=== PATIENT | male | born 1965 | race Caucasian/White ===

== ENCOUNTER → 2019-04-23 | Outpatient (CLI) | payer BC, OTHER ==
[~2019-04-23] VITALS: Ht 170.2 cm; Wt 137.9 kg
[~2019-04-23] MED LIST: ASPIR 8181 MG PO; CIPROFLOXACIN500 M3 PO; FLAGYL500 MG PO; GLUCOPHAGE XR500 MG PO; GLUCOTROL10 MG PO; JARDIANCE10 MG PO; LIPITOR10 MG PO; LISINOPRIL20 MG PO; RELAFEN750 MG; VICTOZA0.6 MG/0.1 SUBQ; ZANAFLEX2 M1; ZOCOR 20 MG TAB20 M1
[2019-04-23 09:26] VITALS: BP 118/70
[2019-04-23 09:56] LABS: HEMOGLOBIN 13.5 gm/dL (14.0-18.0); MCH 30.5 pg (26.0-34.0); MCHC 33.8 g/dL (28.0-37.0); MCV 90.2 fL (80.0-100.0); RBC 4.44 mil/uL (4.50-6.00); RDW 13.7 % (10.5-14.5); WBC 8.7 thou/uL (4.0-11.0)
[2019-04-23 10:05] LABS: CALCIUM 10.9 mg/dL (8.5-10.1); CREATININE 1.7 mg/dL (0.7-1.3); POTASSIUM 4.8 mmol/L (3.5-5.1)
--- NOTE | 2019-04-23 13:45 | EKG ---
[address] [employer] [place] [address] ELECTROCARDIOGRAM REPORT Name: AMY SUTHERLAND Room #: REG CLI Diane#: [id number] Admission: 04/23/19 Attend Phys: Eriberto Daniel Discharge: Date of : 69 Report #: [id number] THIS REPORT FOR: //name// [facility] Test Date: 2019-04-23 Test Time: 09:35:09 Pat Name: AMY SUTHERLAND Department: Room: Gender: Client Service Coordinator: jlambertz : 1965 Requested By: Eriberto Daniel Order Number: [id number] MD: Rusty Christianson Measurements Intervals [place] Rate: 86 P: 29 NH: 200 QRS: 26 QRSD: 96 T: 18 QT: 354 QTc: 424 Interpretive Statements Sinus rhythm Compared to ECG 12/23/2006 12:05:12 No significant changes Electronically Signed On 04-23-2019 13:44:57 CDT by Rusty Christianson [email or web address] <ELECTRONICALLY SIGNED> By: Rusty Christianson MD 04/23/19 1344 0935 0935 Rusty Christianson MD /EPI
--- NOTE | 2019-04-28 16:17 | CATHLAB ---
[facility] [address] [place] [address] INVASIVE PROCEDURE REPORT Name: AMY SUTHERLAND Room #: REG [facility] [id number] Admission: 04/23/19 Attend Phys: Eriberto Sorensen Discharge: Date of : 69 Date of Service: 04/28/19 1617 Report #: [id number] THIS REPORT FOR: //name// APPROVED REPORT Study performed: 04/23/2019 11:18:32 Patient Details The patient is a 53 year-old male Event Personnel Eriberto Daniel Assisted Living Coordinator, Giselle Pkie RN , James Smith RTR ScrubRamirez Sherra RTR Monitor Procedures Performed Left Heart Cath w/or w/o Coronaries [id number] [facility], supervision of conscious sedation Indication Positive stress test, Chest pain Procedure Narrative The Right Groin^ was infiltrated with subcutaneous anesthesia. A PINNACLE 4FR Sheath #[id number] sheath was inserted into the RFA^. Coronary angiography was performed using coronary diagnostic catheters. The right coronary system was accessed and visualized with a JR4 catheter. The left coronary system was accessed and visualized with a JL4 catheter. The left ventricle was accessed and visualized with a JR4 catheter. Hemostasis was obtained with manual pressure following sheath removal without any complications. The patient tolerated the procedure well and there were no complications associated with the procedure. There was no hematoma. Intraoperative Conscious Sedation Sedation start time: 1120 Case end Time: 1137 Versed 2 mg Fluoro Time: 2.30 minutes Dose: DAP 6716.00 cGycm2 1161 mGy Contrast Type and Amount: Visipaque 30 ml Diagnostic Cath Left Main Left main is of normal origin and caliber bifurcates that into descending left circumflex. It is free of significant [facility] [address] [place] [address] INVASIVE PROCEDURE REPORT Name: KOKOAMY RICK Room #: REG [facility]#: [id number] Admission: 04/23/19 Attend Phys: Eriberto Sorensen Discharge: Date of : 69 Date of Service: 04/28/19 1617 Report #: [id number] obstructive lesions. LAD Moderate caliber type II vessel which bifurcates into her first diagonal branch beyond this the LAD rapidly tapers into a moderate to small caliber vessel. It terminates as a small bifurcating vessel in the apex free of high-grade disease. Diagonal 1 Moderate caliber vessel without high-grade lesions noted Circumflex Large-caliber vessel coursing the AV groove posteriorly giving rise to a marginal branch that courses along the lateral aspect of the heart. No significant obstructive lesions are noted no luminal irregularities are present OM1 Moderate caliber vessel coursing towards the apex along the lateral aspect of heart free of high-grade disease Right Coronary Large-caliber vessel of normal origin courses in AV groove giving rise to a small RV marginal branch. Then continued posteriorly giving rise to posterior descending artery and posterior wall circulation. There is luminal irregularities noted in the proximal portion of the RCA but no high-grade obstructive lesions R PDA Moderate caliber vessel coursing in the Hemodynamics The aortic pressure is 112/70 mmHg with a mean of 88 mmHg. The left ventricular pressure is 130/6 mmHg with a mean of mmHg. The left ventricular end diastolic pressure is 19 mmHg. Conclusion 1. Mild coronary artery disease without high-grade obstructive lesions 2. Normally without Mihai Recommendations Cardiac Risk Reduction Program <ELECTRONICALLY SIGNED> By: Eriberto Daniel MD 04/28/19 1617 161 161 Eriberto Daniel MD /INF
== END | disposition home or self-care (01) ==
LOC: CATH 08:36
PROVIDERS: Internal Medicine
DX: I25.10 Atherosclerotic heart disease of native coronary artery without angina pectoris (principal); I10 Essential (primary) hypertension; E11.40 Type 2 diabetes mellitus with diabetic neuropathy, unspecified; E78.00 Pure hypercholesterolemia, unspecified; D64.9 Anemia, unspecified; K21.9 Gastro-esophageal reflux disease without esophagitis; E66.09 Other obesity due to excess calories; Z98.890 Other specified postprocedural states; Z79.899 Other long term (current) drug therapy; Z79.82 Long term (current) use of aspirin